=== PATIENT | female | born 1935 | race American Indian/Alaskan Native ===

== ENCOUNTER 2020-08-24 09:43 | Inpatient (IN) | payer MEDICARE ==
--- NOTE | 2020-08-24 10:11 | Emergency Department Report ---
ED General Adult HPI - General Chief complaint: Altered Mental Status Stated complaint: ALTERED MENTAL STATUS Time Seen by Provider: 08/24/20 10:10 Source: EMS Mode of arrival: Stretcher Limitations: Altered Mental Status - History of Present Illness Initial comments: Patient is an 85-year-old female brought to the emergency department for evaluation of altered mental status noted after being found down after having a bowel movement this morning. Patient presents awake, alert, moving all extremities, however, nonfocal though seemingly not attempting to talk. Patient's daughter contacted, case discussed, states patient is demented and periods of mutism are not uncommon, noting patient has been noncompliant with dementia medicine x several months - Related Data Allergies Allergy/AdvReac Type Severity Reaction Status Date / Time No Known Allergies Allergy Unverified 08/24/20 11:58 ED Review of Systems ROS: Stated complaint: ALTERED MENTAL STATUS Other details as noted in HPI Comment: Unobtainable due to pts medical conditions ED Past Medical Hx - Past Medical History Additional medical history: Dementia ED Physical Exam - General Limitations: Altered Mental Status General appearance: alert, in no apparent distress - Head Head exam: Present: atraumatic - Eye Eye exam: Present: normal appearance Pupils: Present: normal accommodation - ENT ENT exam: Present: normal exam - Neck Neck exam: Present: normal inspection - Respiratory Respiratory exam: Present: normal lung sounds bilaterally - Cardiovascular Cardiovascular Exam: Present: bradycardia - GI/Abdominal GI/Abdominal exam: Present: soft - Extremities Exam Extremities exam: Present: normal inspection - Back Exam Back exam: Present: normal inspection - Neurological Exam Neurological exam: Present: alert, other (Nonverbal) - Psychiatric Psychiatric exam: Present: normal affect, other (Nonverbal, smiling) ED Course Vital Signs 08/24/20 08/24/20 08/24/20 09:58 10:00 10:05 Temperature 95.3 F L Pulse Rate 50 L 48 L 46 L Respiratory 14 11 L 16 Rate Blood Pressure 132/64 Blood Pressure [Left] O2 Sat by Pulse 96 96 93 Oximetry 08/24/20 08/24/20 08/24/20 10:16 11:06 12:00 Temperature 95.3 F L Pulse Rate 46 L 70 46 L Respiratory 16 10 L Rate Blood Pressure 144/77 144/77 Blood Pressure 132/64 [Left] O2 Sat by Pulse 93 95 Oximetry 08/24/20 08/24/20 08/24/20 13:00 13:15 13:44 Temperature 94.1 F L Pulse Rate 46 L 44 L Respiratory 10 L 12 Rate Blood Pressure 167/72 Blood Pressure 144/77 [Left] O2 Sat by Pulse 99 98 Oximetry 08/24/20 14:54 Temperature Pulse Rate 70 Respiratory 13 Rate Blood Pressure Blood Pressure 143/68 [Left] O2 Sat by Pulse 100 Oximetry - Reevaluation(s) Reevaluation #1: 08/24/20 15:17 Urine culture obtained. Patient treated with Rocephin 1 g IV x1, IV normal saline 1 L x 1. ED Medical Decision Making - Lab Data Result diagrams: 08/24/20 11:21 08/24/20 11:21 Labs 08/24/20 08/24/20 08/24/20 11:21 11:21 11:21 WBC 9.1 RBC 4.79 Hgb 14.6 H Hct 44.2 H MCV 92 MCH 31 MCHC 33 RDW 14.9 Plt Count 167 Lymph % (Auto) 18.7 [place] % (Auto) 5.5 Eos % (Auto) 0.4 Baso % (Auto) 0.6 Lymph # (Auto) 1.7 [place] # (Auto) 0.5 Eos # (Auto) 0.0 Baso # (Auto) 0.1 Seg Neutrophils % 74.8 H Seg Neutrophils # 6.8 Sodium 138 Potassium 4.1 Chloride 104.4 Carbon Dioxide 23 Anion Gap 15 BUN 15 Creatinine 0.9 Estimated GFR > 60 BUN/Creatinine Ratio 17 Glucose 110 H Calcium 9.4 Magnesium 2.40 H Total Bilirubin 0.40 AST 25 ALT 10 Alkaline Phosphatase 88 Troponin T < 0.010 Total Protein 7.0 Albumin 3.6 L Albumin/Globulin Ratio 1.1 TSH Urine Color Urine Turbidity Urine pH Ur Specific [place] Urine Protein Urine Glucose (UA) Urine Ketones Urine Blood Urine Nitrite Urine Bilirubin Urine Urobilinogen Ur Leukocyte Esterase Urine WBC (Auto) Urine RBC (Auto) U Epithel Cells (Auto) Urine Bacteria (Auto) Urine Mucus 08/24/20 08/24/20 11:21 13:16 WBC RBC Hgb Hct MCV MCH MCHC RDW Plt Count Lymph % (Auto) [place] % (Auto) Eos % (Auto) Baso % (Auto) Lymph # (Auto) [place] # (Auto) Eos # (Auto) Baso # (Auto) Seg Neutrophils % Seg Neutrophils # Sodium Potassium Chloride Carbon Dioxide Anion Gap BUN Creatinine Estimated GFR BUN/Creatinine Ratio Glucose Calcium Magnesium Total Bilirubin AST ALT Alkaline Phosphatase Troponin T Total Protein Albumin Albumin/Globulin Ratio TSH 2.680 Urine Color [place] Urine Turbidity Slightly-cloudy Urine pH 5.0 Ur Specific [place] 1.025 Urine Protein 30 mg/dl Urine Glucose (UA) Neg Urine Ketones Neg Urine Blood Neg Urine Nitrite Pos Urine Bilirubin Neg Urine Urobilinogen < 2.0 Ur Leukocyte Esterase Mod Urine WBC (Auto) 36.0 H Urine RBC (Auto) 7.0 U Epithel Cells (Auto) 1.0 Urine Bacteria (Auto) 2+ Urine Mucus 3+ Vital Signs 08/24/20 08/24/20 08/24/20 09:58 10:00 10:05 Temperature 95.3 F L Pulse Rate 50 L 48 L 46 L Respiratory 14 11 L 16 Rate Blood Pressure 132/64 Blood Pressure [Left] O2 Sat by Pulse 96 96 93 Oximetry 08/24/20 08/24/20 08/24/20 10:16 11:06 12:00 Temperature 95.3 F L Pulse Rate 46 L 70 46 L Respiratory 16 10 L Rate Blood Pressure 144/77 144/77 Blood Pressure 132/64 [Left] O2 Sat by Pulse 93 95 Oximetry 08/24/20 08/24/20 08/24/20 13:00 13:15 13:44 Temperature 94.1 F L Pulse Rate 46 L 44 L Respiratory 10 L 12 Rate Blood Pressure 167/72 Blood Pressure 144/77 [Left] O2 Sat by Pulse 99 98 Oximetry 08/24/20 14:54 Temperature Pulse Rate 70 Respiratory 13 Rate Blood Pressure Blood Pressure 143/68 [Left] O2 Sat by Pulse 100 Oximetry - EKG Data -: EKG Interpreted by Me (Sinus rhythm at 44, no ST-T changes, normal QRS) - Radiology Data Radiology results: report reviewed CT head: Negative per radiology, chest x-ray: Negative per radiology Critical care attestation.: If time is entered above; I have spent that time in minutes in the direct care of this critically ill patient, excluding procedure time. ED Disposition Clinical Impression: Acute urinary tract infection, Syncope, Noncompliance with medication regimen Disposition: OP ADMIT IP TO THIS HOSP Is pt being admited?: Yes Condition: Stable Instructions: Syncope (ED) Referrals: [facility] [Other] - 3-5 Days
--- NOTE | 2020-08-24 11:13 | XRay Report ---
CHEST 1 VIEW INDICATION: Altered Mental Status. COMPARISON: None FINDINGS: Support devices: None. Heart: Within normal limits. Lungs/Pleura: No acute air space or interstitial disease. Additional findings: Both humeral heads are high riding consistent with chronic bilateral rotator cuf f tears. IMPRESSION: No acute findings. Signer Name: Ciro Edward Jr, MD Signed: 08/24/2020 11:09 AM Workstation Name: [id number]
--- NOTE | 2020-08-24 11:41 | Cat Scan Report ---
CT HEAD WITHOUT CONTRAST HISTORY: Altered Mental Status. TECHNIQUE: Axial imaging performed from the skull apex through the skull base without the use of con trast. All CT scans at this location are performed using CT dose reduction for ALARA by means of aut omated exposure control. COMPARISON: None FINDINGS: Parenchyma: No acute intracranial hemorrhage or parenchymal abnormality.. Mild hypoattenuation thro ughout the white matter is noted and consistent with chronic microvascular ischemic disease. Ventricles: There is mild diffuse brain atrophy with commensurate ventricular enlargement which is l ikely age appropriate. Soft tissues: Soft tissues including the orbits appear normal. Bones: No acute osseous abnormality. Sinuses: Sinuses and mastoid air cells are clear. IMPRESSION: No acute abnormality. Chronic age related changes. Signer Name: Ciro Edward Jr, MD Signed: 08/24/2020 11:36 AM Workstation Name: [id number]
[2020-08-24 12:03] LABS: Alanine Aminotransferase 10 units/L (7-56); Albumin 3.6 g/dL (3.9-5); BUN/Creatinine Ratio 17; Blood Urea Nitrogen 15 mg/dL (7-17); Calcium 9.4 mg/dL (8.4-10.2); Hemolysis Index 20
[2020-08-24 12:16] LABS: Basophils # (Auto) 0.1 K/mm3 (0.0-0.1); Basophils % (Auto) 0.6 % (0.0-1.8); Eosinophils % (Auto) 0.4 % (0.0-4.3); Hematocrit 44.2 % (30.3-42.9); Hemoglobin 14.6 gm/dl (10.1-14.3); Lymphocytes # (Auto) 1.7 K/mm3 (1.2-5.4); Lymphocytes % (Auto) 18.7 % (13.4-35.0); Mean Corpuscular HGB Conc 33 % (30-34); Mean Corpuscular Volume 92 fl (79-97); Monocytes # (Auto) 0.5 K/mm3 (0.0-0.8); Monocytes % (Auto) 5.5 % (0.0-7.3); Platelet Count 167 K/mm3 (140-440); Red Blood Count 4.79 M/mm3 (3.65-5.03); Red Cell Distribution Width 14.9 % (13.2-15.2)
[2020-08-24] MEDS ORDERED: SODIUM CHLORIDE 0.9% 1000 ML 1,000 ML IV ONE (12:57)
[2020-08-24 14:29] LABS: Bacteria,Urine 2+ /HPF (Negative); Bilirubin,Urine NEG (Negative); Blood,Urine NEG (Negative); Color,Urine Amber (Yellow); Mucus,Urine 3+ /HPF; Urobilinogen,Urine < 2.0 mg/dL (<2.0)
[2020-08-24] MEDS ORDERED: cefTRIAXone/NS 1 GM/50 ML 1 GM/50 ML BAG IV ONE (14:44)
--- NOTE | 2020-08-24 15:43 | History and Physical Report ---
History of Present Illness Chief complaint: She passed out History of present illness: 85 YO Female Assisted Living Facility Resident with Vascular Dementia with Behavioral Disturbance, Cerebral Atherosclerosis, Debility, Severe Malnutrition presents to ED for evaluation. Patient is confused with diminished cognition at the time my evaluation is unable to provide detailed history. Patient history taken from EMS staff ED staff, as well as assisted living facility staff. As per staff, the patient was found down in the restroom after having a bowel movement this morning. EMS was notified and upon arrival the patient was found to be in distress and subsequently transported to [facility] for further care and evaluation of the aforementioned symptoms. The patient was seen and evaluated in the emergency department. All lab and imaging studies reviewed. Patient found to have urinary tract infection complicated by metabolic encephalopathy, symptomatic bradycardia suspected secondary to sick sinus syndrome, and severe malnutrition. Patient admitted to telemetry. Patient initiated on IV antibiotic therapy. Cardiology team consulted in ED. No further history is obtainable. Patient is confused with diminished cognition but has a positive gag reflex and is able to protect her airway without difficulty. No prior admission for review. No medication listed at time of admission for reconciliation. Advanced care planning conducted in ED. Past History Past Medical History: other (See HPI) Past Surgical History: No surgical history, Other (Reviewed) Social history: single. denies: smoking, alcohol abuse, prescription drug abuse Family history: hypertension Medications and Allergies Allergies Allergy/AdvReac Type Severity Reaction Status Date / Time No Known Allergies Allergy Unverified 08/24/20 11:58 Review of Systems ROS unobtainable: due to mental status Exam - Constitutional Vitals: Temp Pulse Resp BP Pulse Ox 94.1 F L 70 13 143/68 100 08/24/20 13:15 08/24/20 14:54 08/24/20 14:54 08/24/20 14:54 08/24/20 14:54 General appearance: Present: mild distress, cachectic - EENT Eyes: Present: PERRL ENT: clear oral mucosa - Neck Neck: Present: supple, normal ROM - Respiratory Respiratory effort: normal Respiratory: bilateral: CTA - Cardiovascular Rhythm: other (Bradycardia) Heart Sounds: Present: S1 & S2. Absent: rub, click - Extremities Extremities: pulses symmetrical, No edema Peripheral Pulses: within normal limits - Abdominal General gastrointestinal: Present: soft, non-tender, non-distended, normal bowel sounds Female genitourinary: Present: normal - Integumentary Integumentary: Present: clear, warm, dry - Musculoskeletal Musculoskeletal: gait normal, strength equal bilaterally - Psychiatric Psychiatric: no cooperative, no agitated - Neurologic Neurologic: CNII-XII intact, moves all extremities, no gait normal HEART Score - HEART Score Troponin: Troponin T < 0.010 ng/mL (0.00-0.029) 08/24/20 11:21 Results - Labs CBC & Chem 7: 08/24/20 11:21 08/24/20 11:21 Labs: Abnormal lab results 08/24/20 08/24/20 08/24/20 Range/Units 11:21 11: 11:21 Hgb 14.6 H (10.1-14.3) gm/dl Hct 44.2 H (30.3-42.9) % Seg Neutrophils % 74.8 H (40.0-70.0) % Glucose 110 H (65-100) mg/dL Magnesium 2.40 H (1.7-2.3) mg/dL Albumin 3.6 L (3.9-5) g/dL Urine WBC (Auto) (0.0-6.0) /HPF 08/24/20 Range/Units 13:16 Hgb (10.1-14.3) gm/dl Hct (30.3-42.9) % Seg Neutrophils % (40.0-70.0) % Glucose (65-100) mg/dL Magnesium (1.7-2.3) mg/dL Albumin (3.9-5) g/dL Urine WBC (Auto) 36.0 H (0.0-6.0) /HPF Assessment and Plan - Patient Problems (1) UTI (urinary tract infection) Current Visit: Yes Status: Acute Qualifiers: Encounter type: initial encounter Plan to address problem: IV antibiotic therapy, supportive care, blood cultures, urinalysis, (2) Sick sinus syndrome Current Visit: Yes Status: Acute Plan to address problem: Cardiology team consulted in ED, thyroid panel, telemetry monitoring. Echocardiogram ordered and is pending at time of admission (3) Vascular dementia with behavioral disturbance Current Visit: Yes Status: Acute Plan to address problem: Verbal prompting, verbal redirection, benzodiazepine therapy as clinically indicated. (4) Cerebral atherosclerosis Current Visit: Yes Status: Acute Plan to address problem: Antiplatelet therapy as clinically indicated, risk factor reduction, supportive care. (5) Severe malnutrition Current Visit: Yes Status: Acute Plan to address problem: Encourage increase protein intake, dietary supplementation (6) DVT prophylaxis Current Visit: Yes Status: Acute Plan to address problem: SCD to bilateral lower extremities while in bed, patient is ambulatory (7) Advance care planning Current Visit: Yes Status: Acute Plan to address problem: Disease education conducted, care plan discussed, prognosis discussed, patient is full code, diagnosis discussed, +30 minutes.
[2020-08-24] MEDS ORDERED: ONDANSETRON 4 MG/2 ML INJ IV PRN (15:45)
[2020-08-24] MEDS ORDERED: ACETAMINOPHEN 325 MG TAB PO PRN (15:45)
[2020-08-24] MEDS ORDERED: ALBUTEROL 2.5 MG/3 ML NEBU IH PRN (15:45)
[2020-08-24 16:34] LABS: Free T4 (Free Thyroxine) 0.57 ng/dL (0.76-1.46)
[2020-08-25] MEDS ORDERED: hydrALAZINE 20 MG/1 ML INJ IV PRN ×2 (04:00→04:57)
[2020-08-25] MEDS ORDERED: HALOPERIDOL LACTATE 5 MG/1 ML INJ IM ONE (04:47)
[2020-08-25 08:38] LABS: Basophils % (Auto) 0.5 % (0.0-1.8); Eosinophils % (Auto) 0.3 % (0.0-4.3); Hematocrit 38.7 % (30.3-42.9); Hemoglobin 12.8 gm/dl (10.1-14.3); Lymphocytes # (Auto) 1.2 K/mm3 (1.2-5.4); Lymphocytes % (Auto) 21.6 % (13.4-35.0); Mean Corpuscular HGB Conc 33 % (30-34); Mean Corpuscular Volume 91 fl (79-97); Monocytes # (Auto) 0.3 K/mm3 (0.0-0.8); Monocytes % (Auto) 6.2 % (0.0-7.3); Platelet Count 165 K/mm3 (140-440); Red Blood Count 4.24 M/mm3 (3.65-5.03); Red Cell Distribution Width 14.7 % (13.2-15.2)
[2020-08-25 08:54] LABS: Alanine Aminotransferase 9 units/L (7-56); Albumin 3.2 g/dL (3.9-5); BUN/Creatinine Ratio 18; Blood Urea Nitrogen 18 mg/dL (7-17); Calcium 8.6 mg/dL (8.4-10.2); Hemolysis Index 11
--- NOTE | 2020-08-25 12:21 | Consultation ---
History of Present Illness Consult date: 08/25/20 Requesting physician: MAGALI VALDEZ Consult reason: other (?SSS) History of present illness: The pt is an 85 YO female Assisted Living Facility Resident with a past medical history of Vascular Dementia with Behavioral Disturbance, Cerebral Atherosclerosis, Debility, Severe Malnutrition. She is unable to provide HPI due to dementia and thus HPI is obtained per the chart. Pt is previously unknown to our practice. She presented for evaluation of AMS. Patient history taken from EMS staff ED staff, as well as assisted living facility staff. As per staff, the patient was found down in the restroom after having a bowel movement yesterday morning. EMS was notified and upon arrival the patient was found to be in distress and subsequently transported to [facility] for further care and evaluation of the aforementioned symptoms. Following arrival, pt found to have urinary tract infection complicated by metabolic encephalopathy. Admission ECG showed sinus bradycardia HR 44bpm and thus cardiology has been consulted. Bradycardia has since apparently resolved. Review of telemetry since initiation of remote telemetry shows NSR HR 70s. Past History Past Medical History: other (See HPI) Past Surgical History: No surgical history, Other (Reviewed) Social history: single. denies: smoking, alcohol abuse, prescription drug abuse Family history: hypertension Medications and Allergies Allergies Allergy/AdvReac Type Severity Reaction Status Date / Time No Known Allergies Allergy Unverified 08/24/20 11:58 Active Meds: Active Medications Acetaminophen (Acetaminophen 325 Mg Tab) 650 mg PO Q4H PRN PRN Reason: Pain MILD(1-3)/Fever >100.5/FATIMA Albuterol (Albuterol 2.5 Mg/3 Ml Nebu) 2.5 mg IH Q4HRT PRN PRN Reason: Shortness Of Breath Hydralazine HCl (Hydralazine 20 Mg/1 Ml Inj) 10 mg IV Q6H PRN PRN Reason: Hypertension Last Admin: 08/25/20 05:00 Dose: 10 mg Documented by: Ondansetron HCl (Ondansetron 4 Mg/2 Ml Inj) 4 mg IV Q8H PRN PRN Reason: Nausea And Vomiting Sodium Chloride (Sodium Chloride 0.9% 10 Ml Flush Syringe) 10 ml IV BID GERMAINE Last Admin: 08/24/20 22:24 Dose: 10 ml Documented by: Sodium Chloride (Sodium Chloride 0.9% 10 Ml Flush Syringe) 10 ml IV PRN PRN PRN Reason: LINE FLUSH Review of Systems ROS unobtainable: due to mental status Physical Examination Vital Signs Pulse Resp Pulse Ox 50 L 14 96 08/24/20 09:58 08/24/20 09:58 08/24/20 09:58 General appearance: other (confused, withdrawn) HEENT: Positive: PERRL Neck: Positive: neck supple Cardiac: Positive: Reg Rate and Rhythm, S1/S2 Lungs: Positive: Decreased Breath Sounds Neuro: Positive: Other (confused, withdrawn) Abdomen: Negative: Tender Skin: Negative: Rash Musculoskeletal: No Pain Extremities: Absent: edema Results 08/25/20 08:03 08/25/20 08:03 Cardiac Enzymes 08/25/20 Range/Units 08:03 AST 24 (5-40) units/L CBC 08/24/20 08/25/20 Range/Units 11:21 08:03 WBC 9.1 5.3 (4.5-11.0) K/mm3 RBC 4.79 4.24 (3.65-5.03) M/mm3 Hgb 14.6 H 12.8 (10.1-14.3) gm/dl Hct 44.2 H 38.7 (30.3-42.9) % Plt Count 167 165 (140-440) K/mm3 Lymph # (Auto) 1.7 1.2 (1.2-5.4) K/mm3 [place] # (Auto) 0.5 0.3 (0.0-0.8) K/mm3 Eos # (Auto) 0.0 0.0 (0.0-0.4) K/mm3 Baso # (Auto) 0.1 0.0 (0.0-0.1) K/mm3 Comprehensive Metabolic Panel 08/25/20 Range/Units 08:03 Sodium 138 (137-145) mmol/L Potassium 3.6 (3.6-5.0) mmol/L Chloride 104.5 (98-107) mmol/L Carbon Dioxide 23 (22-30) mmol/L BUN 18 H (7-17) mg/dL Creatinine 1.0 (0.6-1.2) mg/dL Glucose 108 H (65-100) mg/dL Calcium 8.6 (8.4-10.2) mg/dL AST 24 (5-40) units/L ALT 9 (7-56) units/L Alkaline Phosphatase 77 (35-129) units/L Total Protein 6.0 L (6.3-8.2) g/dL Albumin 3.2 L (3.9-5) g/dL - Imaging and Cardiology Echo: pending EKG: report reviewed, image reviewed EKG interpretations - Telemetry EKG Rhythm: Sinus Rhythm - EKG Sinus rhythms and dysrhythmias: sinus bradycardia Assessment and Plan Pt admitted with AMS and UTI. Admission ECG showed sinus bradycardia HR 44bpm and thus cardiology has been consulted. Bradycardia has since apparently resolved. Review of telemetry since initiation of remote telemetry shows NSR HR 70s. Home medications have not been reconciled - it is unclear whether pt was on AV barrett blocking agents at home. tte reviewed - EF 65-70%, impaired relaxation. Cont to avoid AV barrett blocking agents this time. Cont to monitor on telemetry. Will follow. The patient has been seen in conjunction with Dr. Manuel who agrees with the assessment and plan of care. - Patient Problems (1) AMS (altered mental status) Current Visit: Yes Status: Acute (2) UTI (urinary tract infection) Current Visit: Yes Status: Acute Qualifiers: Encounter type: initial encounter (3) Sinus bradycardia Current Visit: Yes Status: Acute (4) Dementia Current Visit: Yes Status: Chronic
--- NOTE | 2020-08-25 15:44 | Progress Note ---
Assessment and Plan --Acute metabolic encephalopthy/ AMS (altered mental status) -- UTI (urinary tract infection) -- Sinus bradycardia -- Dementia Plan: Cont iv abx, Admission ECG showed sinus bradycardia HR 44bpm and thus cardiology has been consulted. Review of telemetry since initiation of remote telemetry shows NSR HR 70s. tte reviewed - EF 65-70%, impaired relaxation. Cont to avoid AV barrett blocking agents this time. Cont to monitor on telemetry. PT eval, supportive care Subjective Date of service: 08/25/20 Interval history: Patient seen and examined. Medical records and medication list reviewed. No acute event overnight noted by the RN. Patient denies any chest pain or difficulty breathing. Patient is tolerating diet. Discussed plan of care at bedside with patient. Objective - Exam Narrative Exam: GENERAL: This is an elderly and malnourished -[place] female lying on bed appeared to be in no discomfort. HEENT: Normocephalic. Atraumatic. No conjunctival congestion or icterus. Patient has moist mucous membranes. NECK: Supple. Trachea midline. CHEST/LUNGS: Clear to auscultated bilaterally, breathing nonlabored. No wheezes crackles or rhonchi. HEART/CARDIOVASCULAR: Regular in rate and rhythm. S1 and S2 positive. ABDOMEN: Abdomen is soft, nontender. Patient has normal bowel sounds. SKIN: There is no rash. Warm and dry. NEURO: No focal motor deficit. Follows command. MUSCULOSKELETAL: No joint effusion or tenderness. EXTRIMITY: No edema, no cyanosis or clubbing. PSYCH: Cooperative. - Constitutional Vitals: Vital Signs - 12hr 08/25/20 08/25/20 08/25/20 05:00 05:27 08:14 Temperature 98.5 F 98.0 F Pulse Rate 71 67 Respiratory 16 18 Rate Blood Pressure 196/98 160/73 110/59 O2 Sat by Pulse 98 Oximetry 08/25/20 08/25/20 08/25/20 09:00 10:00 11:42 Temperature Pulse Rate 73 74 Respiratory 18 14 Rate Blood Pressure 109/69 O2 Sat by Pulse 98 99 Oximetry 08/25/20 12:27 Temperature 98.1 F Pulse Rate Respiratory Rate Blood Pressure O2 Sat by Pulse Oximetry - Labs CBC & Chem 7: 08/25/20 08:03 08/25/20 08:03 Labs: Abnormal lab results 08/24/20 08/25/20 08/25/20 Range/Units 15:40 08:03 08:03 Seg Neutrophils % 71.4 H (40.0-70.0) % BUN 18 H (7-17) mg/dL Glucose 108 H (65-100) mg/dL Total Protein 6.0 L (6.3-8.2) g/dL Albumin 3.2 L (3.9-5) g/dL Free T4 0.57 L (0.76-1.46) ng/dL HEART Score - HEART Score Troponin: Troponin T < 0.010 ng/mL (0.00-0.029) 08/24/20 11:21
[2020-08-26] MEDS ORDERED: cefTRIAXone/NS 1 GM/50 ML 1 GM/50 ML BAG IV SCH (10:00)
--- NOTE | 2020-08-26 10:54 | Progress Note ---
Assessment and Plan Pt admitted with AMS and UTI. Admission ECG showed sinus bradycardia HR 44bpm and thus cardiology was consulted. Bradycardia has since apparently resolved. Review of telemetry since initiation of remote telemetry shows NSR HR 60-70s. Home medications have not been reconciled - it is unclear whether pt was on AV barrett blocking agents at home. tte reviewed - EF 65-70%, impaired relaxation. Cont to avoid AV barrett blocking agents this time. Cont to monitor on telemetry. Nothing further to add from cardiac perspective at this time. Will follow on as needed basis. The patient has been seen in conjunction with Dr. Manuel who agrees with the assessment and plan of care. - Patient Problems (1) AMS (altered mental status) Current Visit: Yes Status: Acute (2) UTI (urinary tract infection) Current Visit: Yes Status: Acute Qualifiers: Encounter type: initial encounter (3) Sinus bradycardia Current Visit: Yes Status: Acute (4) Dementia Current Visit: Yes Status: Chronic Subjective Date of service: 08/26/20 Principal diagnosis: AMS; UTI Interval history: pt resting in bed, no apparent distress, remains confused. tele reviewed - in SR HR 60s. Objective Last Vital Signs Temp 98.0 F 08/26/20 07:23 Pulse 65 08/26/20 07:25 Resp 16 08/26/20 07:23 BP 155/77 08/26/20 07:23 Pulse Ox 98 08/26/20 07:25 - Physical Examination General: No Apparent Distress, Other (confused) HEENT: Positive: PERRL Neck: Positive: neck supple Cardiac: Positive: Reg Rate and Rhythm, S1/S2 Lungs: Positive: Decreased Breath Sounds Neuro: Positive: Other (confused, withdrawn) Abdomen: Negative: Tender Skin: Negative: Rash Musculoskeletal: No Pain Extremities: Absent: edema - Imaging and Cardiology EKG: report reviewed, image reviewed Echo: report reviewed - Telemetry EKG Rhythm: Sinus Rhythm - EKG Sinus rhythms and dysrhythmias: sinus bradycardia
--- NOTE | 2020-08-26 12:56 | Discharge Summary ---
Providers - Providers Date of Admission: 08/24/20 15:45 Date of discharge: 08/26/20 Attending physician: ROEL KEE 08/24/20 11:55 Speech Therapy Evaluation and Treat [CONS] Stat Reason For Exam: failed swallow screen 08/24/20 15:50 Consult to Cardiology [CONS] Routine Consulting Provider: VALORIE TUCKER Reason For Exam: Sick Sinus Syndrome? 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 As per staff, the patient was found down in the restroom after having a bowel movement yesterday morning. EMS was notified and upon arrival the patient was found to be in distress and subsequently transported to [facility] for further care and evaluation of the aforementioned symptoms. Following arrival, pt found to have urinary tract infection complicated by metabolic encephalopathy. Admission ECG showed sinus bradycardia HR 44bpm. CT head showed no acute process. Patient was placed on empiric antibiotic, cardiology was consulted. Bradycardia has since apparently resolved. Review of telemetry since initiation of remote telemetry shows NSR HR 70s. Home medication list was not available but AV barrett blocking agents were avoided. 2D echo showed EF of 65 to 70%. Patient was monitored and no significant arrhythmia noted over the telemetry. Physical therapy was consulted. Patient was tolerating diet and cooperative. Patient was then discharged back to assisted living facility with home health services in stable condition. Disposition: [id number] HOME UNDER [facility] Final Discharge Diagnosis (Prints w/discharge instructions): UTI. Acute metabolic encephalopathy. Vascular Dementia with Behavioral Disturbance,. Cerebral Atherosclerosis,. Debility,. moderate Malnutrition. Time spent for discharge: 34 minutes Core Measure Documentation - Palliative Care Palliative Care/ Comfort Measures: Not Applicable - Core Measures Any of the following diagnoses?: none Exam - Physical Exam Narrative exam: GENERAL: This is an elderly and malnourished -[place] female lying on bed appeared to be in no discomfort. HEENT: Normocephalic. Atraumatic. No conjunctival congestion or icterus. Patient has moist mucous membranes. NECK: Supple. Trachea midline. CHEST/LUNGS: Clear to auscultated bilaterally, breathing nonlabored. No wheezes crackles or rhonchi. HEART/CARDIOVASCULAR: Regular in rate and rhythm. S1 and S2 positive. ABDOMEN: Abdomen is soft, nontender. Patient has normal bowel sounds. SKIN: There is no rash. Warm and dry. NEURO: No focal motor deficit. Follows command. MUSCULOSKELETAL: No joint effusion or tenderness. EXTRIMITY: No edema, no cyanosis or clubbing. PSYCH: Cooperative. - Constitutional Vitals: Temp Pulse Resp BP Pulse Ox 98.4 F 63 16 147/69 99 08/26/20 11:30 08/26/20 11:30 08/26/20 11:30 08/26/20 11:30 08/26/20 11:30 Plan Activity: advance as tolerated Weight Bearing Status: Non-Weight Bearing Diet: low fat, low salt Follow up with: [facility] [Other] - 3-5 Days Prescriptions: Aspirin EC [Halfprin EC] 81 mg PO QDAY #30 tablet. levoFLOXacin [Levaquin TAB] 500 mg PO QDAY #3 tablet
[2020-08-26 15:20] VITALS: BP 134/72
--- NOTE | 2020-08-27 10:54 | Electrocardiograph Report ---
[facility] Test Date: 2020-08-24 Test Time: 10:24:24 Pat Name: RONALDO FELIPE Department: Room: A487 Gender: F Web Development Intern: VIOLETTA : 1935 Requested By: TARI BASURTO Order Number: [id number] Reading MD: Stephen Manuel Measurements Intervals [place] Rate: 44 P: 82 TN: 223 QRS: 16 QRSD: 89 T: 251 QT: 502 QTc: 429 Interpretive Statements Sinus bradycardia Borderline prolonged TN interval Abnormal T, consider ischemia, diffuse leads No previous ECG available for comparison Electronically Signed On 08-27-2020 7:54:09 PDT by Stephen Manuel
== END 2020-08-26 21:50 | DRG 689 ==
LOC: ED 09:43 → 4A 15:45
PROVIDERS: ADMIT Internal Medicine; ATTEND Internal Medicine
DX: N39.0 Urinary tract infection, site not specified (principal); E43 Unspecified severe protein-calorie malnutrition; G93.41 Metabolic encephalopathy; I49.5 Sick sinus syndrome; I67.2 Cerebral atherosclerosis; F03.90 Unspecified dementia, unspecified severity, without behavioral disturbance, psychotic disturbance, mood disturbance, and anxiety; Z91.19 Patient's noncompliance with other medical treatment and regimen; Z82.49 Family history of ischemic heart disease and other diseases of the circulatory system; Z79.899 Other long term (current) drug therapy
CPT/HCPCS: 36415; 70450; 71045; 80053; 81001; 83735; 84439; 84443; 84484; 85025; 87076; 87086; 87186; 93005; 93306; 96361; 96365; 96366; G0378; J0360; J0696; J1630; J7030